=== PATIENT | female | born 1985 | race African-American/Black ===

== ENCOUNTER 2016-08-03 10:37 | Inpatient (IN) | payer MEDICAID ==
[~2016-08-03] VITALS: Ht 165.1 cm; Wt 49.9 kg
[2016-08-03] MEDS ORDERED: DIPHENHYDRAMINE 50MG/ML VIAL IV ONE (12:30)
[2016-08-03] MEDS ORDERED: MORPHINE SULFATE 2 MG/ML CPJ (NOT FOR IM USE) IV ONE (12:30)
[2016-08-03] MEDS ORDERED: ONDANSETRON HCL 4MG/2ML VIAL IV ONE (12:30)
[2016-08-03] MEDS ORDERED: PANTOPRAZOLE SODIUM 40 MG/VIAL IV ONE (12:30)
[2016-08-03] MEDS ORDERED: SODIUM CHLORIDE 0.9% 500 ML IV ONE (12:30)
[2016-08-03 12:36] LABS: BASOPHILS % 0.6 % (0.0-2.0); EOSINOPHILS % 0.2 % (0.0-5.0); HEMATOCRIT. 39.2 % (36.0-48.0); HEMOGLOBIN. 13.2 g/dL (12.0-16.0); LYMPHOCYTES % 7.2 % (20.0-50.0); MEAN CORPUSCULAR HEMOGLOBIN 33.2 pg (28.0-32.0); MEAN CORPUSCULAR HGB CONC 33.8 g/dL (31.0-37.0); MEAN CORPUSCULAR VOLUME 98.4 fL (81.0-99.0); MEAN PLATELET VOLUME 8.3 fl (7.4-10.4); MONOCYTES % 5.1 % (2.0-8.0); NEUTROPHILS % 86.9 % (40.0-76.0); PLATELET 253 x1000/uL (130-400); RED BLOOD CELL COUNT 3.98 mill/uL (4.2-5.4); RED CELL DISTRIBUTION WIDTH 13.1 % (11.6-14.6); WHITE BLOOD COUNT 12.3 x1000/uL (4.5-11.0)
[2016-08-03 12:52] LABS: ALANINE AMINOTRANSFERASE 19 IU/L (13-61); ALBUMIN 3.8 g/dL (3.4-5.0); ANION GAP 14; CALCIUM 8.9 mg/dL (8.5-10.1); CARBON DIOXIDE 27 mEq/L (21-32); CHLORIDE 106 mEq/L (98-107); INDEX HEMOLYSI 1 (1-3); INDEX ICTERIC 1 (1-4); INDEX LIPEMIC 1 (1-3); UREA NITROGEN BLOOD 9 mg/dL (7-21); eGFR > 60 mL/min (>60)
[2016-08-03 13:28] LABS: CLARITY URINE CLEAR (CLEAR); COLOR URINE YELLOW (YELLOW); GLUCOSE URINE NEGATIVE (NEGATIVE); KETONES URINE NEGATIVE (NEGATIVE); LEUKOCYTE ESTERASE URINE NEGATIVE (NEGATIVE); NITRITE URINE NEGATIVE (NEGATIVE); OCCULT BLOOD URINE NEGATIVE (NEGATIVE); PROTEIN URINE TRACE (NEGATIVE); SPECIFIC GRAVITY URINE 1.024 (1.005-1.030)
[2016-08-03 13:48] LABS: BACTERIA URINE TRACE; MUCUS URINE 2+ /lpf (< = 2+); RBC URINE NONE SEEN /hpf (0-2); SQUAMOUS EPITHELIAL CELL URINE 2+ /lpf (RARE/1+); TRICHOMONAS URINE 1+; WBC URINE 0-2 /hpf (0-2)
[2016-08-03 13:55] LABS: *BARBITURATES SCREEN URINE NEGATIVE (NEGATIVE); *BENZODIAZEPINES SCREEN URINE NEGATIVE (NEGATIVE); ECSTASY MDMA SCREEN URINE NEGATIVE (NEGATIVE); METHADONE URINE SCREEN NEGATIVE (NEGATIVE); OPIATES URINE SCREEN NEGATIVE (NEGATIVE); PHENCYCLIDINE URINE SCREEN NEGATIVE (NEGATIVE)
[2016-08-03 13:57] LABS: *AMPHETAMINES SCREEN URINE PRESUMTIVE POSITIVE (NEGATIVE)
[2016-08-03 13:58] LABS: *COCAINE SCREEN URINE PRESUMTIVE POSITIVE (NEGATIVE)
[2016-08-03 13:59] LABS: CANNABINOID URINE SCREEN PRESUMTIVE POSITIVE (NEGATIVE)
[2016-08-03 17:50] VITALS: BP 109/76
[2016-08-03 20:00] VITALS: BP 111/60
[2016-08-03] MEDS ORDERED: DEXT 5%/0.45% NACL 1000ML 1,000 ML IV SCH (20:33)
[2016-08-03] MEDS ORDERED: ONDANSETRON HCL 4MG/2ML VIAL IV PRN (20:45)
[2016-08-03] MEDS ORDERED: ACETAMINOPHEN 325MG TABLET PO PRN (20:45)
[2016-08-03] MEDS ORDERED: LORAZEPAM 2MG/ML CPJ IV PRN (20:45)
[2016-08-03] MEDS ORDERED: CLONIDINE 0.1MG TABLET PO PRN (20:45)
[2016-08-03] MEDS: HYDROMORPHONE HCL/PF 2MG/ML CPJ IV PRN (21:02)
[2016-08-03] MEDS: PANTOPRAZOLE SODIUM 40 MG/VIAL IV SCH (21:30)
[2016-08-03] MEDS ORDERED: LEVOFLOXACIN 500MG PREMIX 100 ML IV SCH (22:00)
[2016-08-04] VITALS: BP 113/72
[2016-08-04] MEDS: HYDROMORPHONE HCL/PF 2MG/ML CPJ IV PRN ×2 (02:21→09:25)
[2016-08-04 04:00] VITALS: BP 101/66
[2016-08-04 05:43] LABS: BASOPHILS % 0.5 % (0.0-2.0); EOSINOPHILS % 1.4 % (0.0-5.0); HEMATOCRIT. 38.5 % (36.0-48.0); HEMOGLOBIN. 12.8 g/dL (12.0-16.0); LYMPHOCYTES % 20.5 % (20.0-50.0); MEAN CORPUSCULAR HEMOGLOBIN 33.1 pg (28.0-32.0); MEAN CORPUSCULAR HGB CONC 33.3 g/dL (31.0-37.0); MEAN CORPUSCULAR VOLUME 99.2 fL (81.0-99.0); MEAN PLATELET VOLUME 8.5 fl (7.4-10.4); MONOCYTES % 10.7 % (2.0-8.0); NEUTROPHILS % 66.9 % (40.0-76.0); PLATELET 216 x1000/uL (130-400); RED BLOOD CELL COUNT 3.88 mill/uL (4.2-5.4); WHITE BLOOD COUNT 8.2 x1000/uL (4.5-11.0)
[2016-08-04 06:28] LABS: ANION GAP 14; CALCIUM 8.2 mg/dL (8.5-10.1); CARBON DIOXIDE 26 mEq/L (21-32); CHLORIDE 100 mEq/L (98-107); INDEX HEMOLYSI 1 (1-3); INDEX ICTERIC 1 (1-4); INDEX LIPEMIC 1 (1-3); MAGNESIUM 1.7 mg/dL (1.8-2.4); PHOSPHORUS 3.9 mg/dL (2.5-4.9); UREA NITROGEN BLOOD 9 mg/dL (7-21); eGFR > 60 mL/min (>60)
[2016-08-04 08:00] VITALS: BP 112/62
[2016-08-04] MEDS: PANTOPRAZOLE SODIUM 40 MG/VIAL IV SCH (09:24)
[2016-08-04] MEDS ORDERED: MAGNESIUM 2 G PREMIX 50 ML IV NR (10:00)
[2016-08-04] MEDS ORDERED: LEVO750T21 PO (11:36)
[2016-08-04 12:00] VITALS: BP 110/68
[2016-08-04 14:15] VITALS: BP 110/68
[2016-08-05] MEDS ORDERED: TINI500T PO (00:46)
== END 2016-08-04 14:40 | disposition home or self-care (01) | DRG 720 ==
LOC: ER 11:09 → 7WST 15:40
PROVIDERS: ADMIT Internal Medicine Nephrology; ATTEND Internal Medicine Nephrology
DX: A41.9 Sepsis, unspecified organism (principal); K92.0 Hematemesis; J18.9 Pneumonia, unspecified organism; A59.9 Trichomoniasis, unspecified; F12.10 Cannabis abuse, uncomplicated; F14.10 Cocaine abuse, uncomplicated; G89.29 Other chronic pain; J45.909 Unspecified asthma, uncomplicated; F15.90 Other stimulant use, unspecified, uncomplicated; Y92.89 Other specified places as the place of occurrence of the external cause
CPT/HCPCS: 36415; 71010; 74176; 80048; 80053; 80305; 81001; 81025; 83735; 84100; 85025; 86850; 86900; 93005; 96361; 96374; 96375; 99285; C9113; J1170; J1200; J1956; J2270; J2405; J3475; J3490; J7040

== ENCOUNTER 2016-08-22 17:15 | Emergency (ER) | payer MEDICAID ==
[~2016-08-22] VITALS: Ht 165.1 cm; Wt 52.0 kg
[~2016-08-22 17:15] MED LIST: LEVO750T21 PO; TINI500T PO
[2016-08-22] MEDS ORDERED: ONDANSETRON HCL 4MG/2ML VIAL IV ONE (19:15)
[2016-08-22] MEDS ORDERED: SODIUM CHLORIDE 0.9% 1,000 ML IV ONE (19:15)
[2016-08-22 19:28] LABS: EOSINOPHILS % 1.9 % (0.0-5.0); HEMATOCRIT. 37.9 % (36.0-48.0); HEMOGLOBIN. 12.5 g/dL (12.0-16.0); LYMPHOCYTES % 37.7 % (20.0-50.0); MEAN CORPUSCULAR HEMOGLOBIN 32.3 pg (28.0-32.0); MEAN CORPUSCULAR HGB CONC 32.9 g/dL (31.0-37.0); MEAN CORPUSCULAR VOLUME 98.2 fL (81.0-99.0); MEAN PLATELET VOLUME 8.4 fl (7.4-10.4); MONOCYTES % 4.6 % (2.0-8.0); NEUTROPHILS % 54.8 % (40.0-76.0); PLATELET 313 x1000/uL (130-400); RED BLOOD CELL COUNT 3.86 mill/uL (4.2-5.4); RED CELL DISTRIBUTION WIDTH 12.8 % (11.6-14.6); WHITE BLOOD COUNT 9.7 x1000/uL (4.5-11.0)
[2016-08-22 19:34] LABS: INR 1.1; PARTIAL THROMBOPLASTIN TIME 28.5 sec (24.0-34.0)
[2016-08-22 19:35] LABS: ALANINE AMINOTRANSFERASE 15 IU/L (13-61); ALBUMIN 3.7 g/dL (3.4-5.0); ANION GAP 14; CALCIUM 8.9 mg/dL (8.5-10.1); CARBON DIOXIDE 26 mEq/L (21-32); CHLORIDE 107 mEq/L (98-107); INDEX HEMOLYSI 1 (1-3); INDEX ICTERIC 1 (1-4); INDEX LIPEMIC 1 (1-3); LIPASE 338 IU/L (73-393); UREA NITROGEN BLOOD 9 mg/dL (7-21)
[2016-08-22 19:36] LABS: eGFR > 60 mL/min (>60)
[2016-08-22 20:29] LABS: CLARITY URINE CLOUDY (CLEAR); COLOR URINE YELLOW (YELLOW); GLUCOSE URINE NEGATIVE (NEGATIVE); KETONES URINE TRACE (NEGATIVE); LEUKOCYTE ESTERASE URINE TRACE (NEGATIVE); NITRITE URINE NEGATIVE (NEGATIVE); OCCULT BLOOD URINE 1+ (NEGATIVE); PH URINE 8.5 (4.5-8.0); PROTEIN URINE NEGATIVE (NEGATIVE); SPECIFIC GRAVITY URINE 1.022 (1.005-1.030)
[2016-08-22] MEDS ORDERED: MORPHINE SULFATE 4 MG/ML CPJ (NOT FOR IM USE) IV ONE (20:30)
[2016-08-22 20:45] LABS: SQUAMOUS EPITHELIAL CELL URINE 1+ /lpf (RARE/1+)
[2016-08-22 20:46] LABS: BACTERIA URINE 2+
[2016-08-23 01:28] VITALS: BP 112/56
== END 2016-08-23 02:29 | disposition home or self-care (01) ==
LOC: ER 18:59
DX: N39.0 Urinary tract infection, site not specified (principal); J45.909 Unspecified asthma, uncomplicated; R11.10 Vomiting, unspecified; F12.10 Cannabis abuse, uncomplicated; Z87.09 Personal history of other diseases of the respiratory system
CPT/HCPCS: 36415; 80053; 81001; 81025; 83690; 85025; 85610; 85730; 96361; 96374; 96375; 99285; J2270; J2405; J7030; Z7610

== ENCOUNTER 2016-10-13 14:59 | Emergency (ER) | payer MEDICAID, OTHER ==
[~2016-10-13] VITALS: Ht 165.1 cm; Wt 55.0 kg
[2016-10-13] MEDS ORDERED: KETOROLAC 60MG/2ML VIAL IM ONE (17:00)
[2016-10-13] MEDS ORDERED: IBUPROFEN 600MG TABLET PO ONE (17:45)
[2016-10-13 18:07] VITALS: BP 116/72
== END 2016-10-13 18:09 | disposition home or self-care (01) ==
LOC: ER 14:59
DX: S43.401A Unspecified sprain of right shoulder joint, initial encounter (principal); V49.49XA Driver injured in collision with other motor vehicles in traffic accident, initial encounter; Y93.89 Activity, other specified; Y92.410 Unspecified street and highway as the place of occurrence of the external cause; J45.909 Unspecified asthma, uncomplicated
CPT/HCPCS: 73030; 81025; 99284; J1885

== ENCOUNTER 2017-12-08 16:26 | Emergency (ER) | payer OTHER ==
[~2017-12-08] VITALS: Ht 165.1 cm; Wt 62.0 kg
[2017-12-08 18:43] LABS: UCG SCREEN POSITIVE
[2017-12-08 18:47] LABS: CLARITY URINE CLEAR (CLEAR); COLOR URINE YELLOW (YELLOW); KETONES URINE NEGATIVE (NEGATIVE); LEUKOCYTE ESTERASE URINE 2+ (NEGATIVE); NITRITE URINE NEGATIVE (NEGATIVE); OCCULT BLOOD URINE NEGATIVE (NEGATIVE); PH URINE 5.5 (4.5-8.0); PROTEIN URINE NEGATIVE (NEGATIVE); SPECIFIC GRAVITY URINE 1.024 (1.005-1.030)
[2017-12-09] MEDS ORDERED: SODIUM CHLORIDE 0.9% 1,000 ML IV ONE (00:54)
[2017-12-09] MEDS: ACETAMINOPHEN 325MG TABLET PO PRN ×2 (00:59→01:00)
[2017-12-09] MEDS ORDERED: ONDANSETRON HCL 4MG/2ML VIAL IV ONE (01:00)
[2017-12-09] MEDS ORDERED: FAMOTIDINE 20MG/2ML VIAL IV ONE (01:00)
[2017-12-09 01:29] LABS: BASOPHILS % 0.6 % (0.0-2.0); EOSINOPHILS % 0.8 % (0.0-5.0); HEMATOCRIT. 40.1 % (36.0-48.0); HEMOGLOBIN. 13.5 g/dL (12.0-16.0); LYMPHOCYTES % 18.4 % (20.0-50.0); MEAN CORPUSCULAR HEMOGLOBIN 31.8 pg (28.0-32.0); MEAN CORPUSCULAR VOLUME 94.4 fL (81.0-99.0); MEAN PLATELET VOLUME 8.6 fl (7.4-10.4); MONOCYTES % 6.3 % (2.0-8.0); NEUTROPHILS % 73.9 % (40.0-76.0); PLATELET 333 x1000/uL (130-400); RED BLOOD CELL COUNT 4.24 mill/uL (4.2-5.4); RED CELL DISTRIBUTION WIDTH 12.2 % (11.6-14.6)
[2017-12-09 01:34] LABS: CHLORIDE 101 mEq/L (98-107)
[2017-12-09 02:00] LABS: B-HCG QUANTITATIVE 93130 mIU/mL (<3)
[2017-12-09] MEDS ORDERED: ONDANSETRON 4MG ODT PO ONE (04:00)
[2017-12-09 04:38] VITALS: BP 112/77
== END 2017-12-09 06:45 | disposition home or self-care (01) ==
LOC: ER 16:26
DX: O21.0 Mild hyperemesis gravidarum (principal); O23.41 Unspecified infection of urinary tract in pregnancy, first trimester; J45.909 Unspecified asthma, uncomplicated; F12.10 Cannabis abuse, uncomplicated; F17.200 Nicotine dependence, unspecified, uncomplicated; Z3A.11 11 weeks gestation of pregnancy
CPT/HCPCS: 36415; 76801; 80053; 81003; 81025; 84702; 85025; 86850; 86900; 86901; 96361; 96374; 96375; 99285; J2405; J7030; Q0162

== ENCOUNTER 2018-02-01 07:44 | Emergency (ER) | payer MEDICAID, OTHER ==
[~2018-02-01] VITALS: Ht 162.6 cm; Wt 60.0 kg
[2018-02-01 07:45] VITALS: BP 112/68
[2018-02-01] MEDS ORDERED: ACETAMINOPHEN 325MG TABLET PO ONE (08:30)
== END 2018-02-01 09:02 | disposition home or self-care (01) ==
LOC: ER 07:44
DX: O99.89 Other specified diseases and conditions complicating pregnancy, childbirth and the puerperium (principal); K08.89 Other specified disorders of teeth and supporting structures; I88.9 Nonspecific lymphadenitis, unspecified; Z3A.20 20 weeks gestation of pregnancy
CPT/HCPCS: 99283

== ENCOUNTER 2018-04-09 19:42 | Observation (INO) | payer MEDICAID ==
[~2018-04-09] VITALS: Ht 165.1 cm; Wt 65.8 kg
[2018-04-09] MEDS ORDERED: ONDANSETRON HCL 4MG/2ML INJ IV NR (20:45)
[2018-04-09 20:50] LABS: CLARITY URINE TURBID (CLEAR); COLOR URINE YELLOW (YELLOW); KETONES URINE TRACE (NEGATIVE); LEUKOCYTE ESTERASE URINE 3+ (NEGATIVE); NITRITE URINE NEGATIVE (NEGATIVE); OCCULT BLOOD URINE 1+ (NEGATIVE); PROTEIN URINE 1+ (NEGATIVE); SPECIFIC GRAVITY URINE 1.022 (1.005-1.030)
[2018-04-09 20:55] LABS: BASOPHILS % 0.3 % (0.0-2.0); HEMATOCRIT. 35.7 % (36.0-48.0); HEMOGLOBIN. 11.7 g/dL (12.0-16.0); LYMPHOCYTES % 21.4 % (20.0-50.0); MEAN CORPUSCULAR HEMOGLOBIN 31.4 pg (28.0-32.0); MEAN CORPUSCULAR VOLUME 95.4 fL (81.0-99.0); MEAN PLATELET VOLUME 10.3 fl (7.4-10.4); MONOCYTES % 6.5 % (2.0-8.0); NEUTROPHILS % 70.8 % (40.0-76.0); PLATELET 208 x1000/uL (130-400); RED BLOOD CELL COUNT 3.74 mill/uL (4.2-5.4); RED CELL DISTRIBUTION WIDTH 13.1 % (11.6-14.6)
[2018-04-09 20:56] LABS: CHLORIDE 105 mEq/L (98-107)
[2018-04-09] MEDS ORDERED: MVI, ADULT NO.1 10 ML in DEXT 5%/0.9% NACL 1,000 ML IV ONE ×2 (22:30)
[2018-04-09] MEDS ORDERED: PREN-176 MT (23:34)
== END 2018-04-09 23:50 | disposition home or self-care (01) ==
LOC: L&D 19:42
PROVIDERS: ADMIT Specialist; ATTEND Specialist
DX: O26.893 Other specified pregnancy related conditions, third trimester (principal); R42 Dizziness and giddiness; R10.30 Lower abdominal pain, unspecified; N89.8 Other specified noninflammatory disorders of vagina; M54.9 Dorsalgia, unspecified; O21.2 Late vomiting of pregnancy; Z3A.29 29 weeks gestation of pregnancy
CPT/HCPCS: 36415; 80048; 81003; 85025; 96365; 96366; 96375; 99281; G0378; J2405; J3490; 96360; 96361; J7042

== ENCOUNTER 2018-05-06 20:04 | Observation (INO) | payer MEDICAID ==
[~2018-05-06] VITALS: Ht 165.1 cm; Wt 68.0 kg
[~2018-05-06 20:04] MED LIST changes: +PREN-176 MT
[2018-05-06] MEDS ORDERED: LACTATED RINGERS 1,000 ML IV SCH (21:45)
[2018-05-06 22:18] LABS: CLARITY URINE CLOUDY (CLEAR); COLOR URINE YELLOW (YELLOW); KETONES URINE NEGATIVE (NEGATIVE); LEUKOCYTE ESTERASE URINE 3+ (NEGATIVE); NITRITE URINE NEGATIVE (NEGATIVE); OCCULT BLOOD URINE NEGATIVE (NEGATIVE); PH URINE 6.5 (4.5-8.0); PROTEIN URINE NEGATIVE (NEGATIVE); UROBILINOGEN URINE 0.2 E.U./dL (0.2-1.0)
[2018-05-06] MEDS ORDERED: ACETAMINOPHEN 500MG TABLET PO ONE (23:15)
[2018-05-07] MEDS ORDERED: CEFAZOLIN 2,000 MG in DEXT 5% WATER 100 ML IV SCH ×2
== END 2018-05-07 01:00 | disposition home or self-care (01) ==
LOC: EDBD 20:04 → 8 EST LDRP 20:04
PROVIDERS: ADMIT Obstetrics & Gynecology; ATTEND Obstetrics & Gynecology
DX: O36.8130 Decreased fetal movements, third trimester, not applicable or unspecified (principal); O21.2 Late vomiting of pregnancy; O26.853 Spotting complicating pregnancy, third trimester; O26.893 Other specified pregnancy related conditions, third trimester; R10.30 Lower abdominal pain, unspecified; R51 Headache; Z3A.33 33 weeks gestation of pregnancy
CPT/HCPCS: 76805; 76818; 81003; 96361; 96365; 99281; G0378; J0690; 96360; 96372; J7060

== ENCOUNTER 2018-07-31 12:22 | Emergency (ER) | payer MEDICAID ==
[~2018-07-31] VITALS: Ht 165.1 cm; Wt 60.0 kg
[2018-07-31] MEDS ORDERED: LORAZEPAM 0.5MG TABLET PO ONE (14:15)
[2018-07-31] MEDS ORDERED: KETOROLAC 60MG/2ML VIAL IM ONE (14:15)
[2018-07-31 16:40] VITALS: BP 109/70
== END 2018-07-31 16:40 | disposition home or self-care (01) ==
LOC: ER 12:22
DX: S19.9XXA Unspecified injury of neck, initial encounter (principal); S02.2XXA Fracture of nasal bones, initial encounter for closed fracture; J45.909 Unspecified asthma, uncomplicated; F17.200 Nicotine dependence, unspecified, uncomplicated; F12.10 Cannabis abuse, uncomplicated; V49.49XA Driver injured in collision with other motor vehicles in traffic accident, initial encounter; Y93.89 Activity, other specified; Y92.89 Other specified places as the place of occurrence of the external cause; Y99.8 Other external cause status
CPT/HCPCS: 70486; 72125; 81025; 96372; 99284; J1885

== ENCOUNTER 2021-08-24 09:49 | Emergency (ER) | payer MEDICAID ==
[~2021-08-24] VITALS: Ht 165.1 cm; Wt 54.0 kg
[2021-08-24] MEDS ORDERED: LORAZEPAM 0.5MG TABLET PO ONE (10:15)
[2021-08-24 10:23] LABS: BASOPHILS % 0.6 % (0.0-2.0); EOSINOPHILS % 0.5 % (0.0-5.0); HEMATOCRIT. 43.7 % (36.0-48.0); HEMOGLOBIN. 14.7 g/dL (12.0-16.0); LYMPHOCYTES % 21.5 % (20.0-50.0); MEAN CORPUSCULAR HEMOGLOBIN 32.8 pg (28.0-32.0); MEAN CORPUSCULAR VOLUME 97.7 fL (81.0-99.0); MEAN PLATELET VOLUME 8.8 fl (7.4-10.4); MONOCYTES % 4.3 % (2.0-8.0); NEUTROPHILS % 73.1 % (40.0-76.0); PLATELET 323 x1000/uL (130-400); RED BLOOD CELL COUNT 4.48 mill/uL (4.2-5.4)
[2021-08-24 10:28] LABS: CLARITY URINE CLEAR (CLEAR); COLOR URINE YELLOW (YELLOW); KETONES URINE NEGATIVE (NEGATIVE); LEUKOCYTE ESTERASE URINE NEGATIVE (NEGATIVE); NITRITE URINE NEGATIVE (NEGATIVE); OCCULT BLOOD URINE 1+ (NEGATIVE); PROTEIN URINE NEGATIVE (NEGATIVE)
[2021-08-24 10:35] LABS: CHLORIDE 108 mEq/L (98-107)
[2021-08-24 10:39] LABS: ETHANOL BLOOD 102 mg/dL
[2021-08-24 10:51] LABS: HCG SCREEN NEGATIVE
[2021-08-24] MEDS ORDERED: RISPERIDONE 0.5MG TABLET PO SCH (11:00)
[2021-08-24] MEDS ORDERED: CITALOPRAM HYDROBROMIDE 10MG TABLET PO SCH (12:00)
[2021-08-24 12:07] LABS: *BARBITURATES SCREEN URINE NEGATIVE (NEGATIVE)
[2021-08-24 12:08] LABS: *AMPHETAMINES SCREEN URINE NEGATIVE (NEGATIVE); *COCAINE SCREEN URINE NEGATIVE (NEGATIVE); OPIATES URINE SCREEN NEGATIVE (NEGATIVE); PHENCYCLIDINE URINE SCREEN NEGATIVE (NEGATIVE)
[2021-08-24 12:10] LABS: *BENZODIAZEPINES SCREEN URINE NEGATIVE (NEGATIVE)
[2021-08-24 12:11] LABS: METHADONE URINE SCREEN NEGATIVE (NEGATIVE)
[2021-08-24 12:18] LABS: CANNABINOID URINE SCREEN PRESUMTIVE POSITIVE (NEGATIVE)
[2021-08-24 17:30] VITALS: BP 128/71
== END 2021-08-24 17:32 | disposition home or self-care (01) ==
LOC: ER 11:29
DX: F31.4 Bipolar disorder, current episode depressed, severe, without psychotic features (principal); F43.0 Acute stress reaction; F10.129 Alcohol abuse with intoxication, unspecified; Y90.5 Blood alcohol level of 100-119 mg/100 ml; F12.90 Cannabis use, unspecified, uncomplicated; Z20.822 Contact with and (suspected) exposure to COVID-19
CPT/HCPCS: 36415; 80053; 80305; 80307; 80320; 80329; 81003; 84703; 85025; 99284; C9803; U0003; U0005; G0480

== ENCOUNTER 2024-11-07 09:47 | Emergency (ER) | payer MEDICAID ==
[~2024-11-07] VITALS: Ht 170.2 cm; Wt 65.0 kg
[2024-11-07 09:49] VITALS: TEMP 36.7; O2SAT 99
[2024-11-07] MEDS: SODIUM CHLORIDE 0.9% 1,000 ML IV ONE (10:57)
[2024-11-07] MEDS: ONDANSETRON HCL 4MG/2ML INJ IV STA (10:57)
[2024-11-07 11:12] LABS: BASOPHILS % 0.3 % (0.0-2.0); EOSINOPHILS % 0.2 % (0.0-5.0); HEMATOCRIT. 44.2 % (36.0-48.0); HEMOGLOBIN. 14.7 g/dL (12.0-16.0); LYMPHOCYTES % 12.2 % (20.0-50.0); MEAN PLATELET VOLUME 9.0 fl (7.4-10.4); MONOCYTES % 5.9 % (2.0-8.0); NEUTROPHILS % 81.4 % (40.0-76.0); PLATELET 297 x1000/uL (130-400); RED BLOOD CELL COUNT 4.53 mill/uL (4.2-5.4); RED CELL DISTRIBUTION WIDTH 12.8 % (11.6-14.6)
[2024-11-07 11:23] LABS: INR 1.0
[2024-11-07 11:24] LABS: HCG SCREEN NEGATIVE
[2024-11-07 11:26] LABS: CREATININE 1.0 mg/dL (0.6-1.0); TROPONIN I HIGH SENSITIVITY < 4 ng/L (3.0-34); UREA NITROGEN BLOOD 13 mg/dL (9-23)
[2024-11-07 11:28] LABS: ASPARTATE AMINOTRANSFERASE 48 IU/L (<34); BILIRUBIN DIRECT 0.3 mg/dL (<=3.0); BILIRUBIN TOTAL 1.0 mg/dL (0.1-1.0); PROTEIN TOTAL 8.2 g/dL (6.0-8.3)
[2024-11-07] MEDS: VISCOUS LIDOCAINE 2% 15 ML UDC MM ONE (12:47)
[2024-11-07] MEDS: KETOROLAC 30MG/ML VIAL IV ONE (14:35)
[2024-11-07] MEDS: ONDANSETRON 4MG ODT PO ONE (14:35)
[2024-11-07 16:50] VITALS: BP 114/77; PULSE 56; RESP 12; O2SAT 100
[2024-11-07] MEDS ORDERED: ONDA-239 PO (17:21)
[2024-11-07] MEDS ORDERED: AMOX-494 MT (17:21)
== END 2024-11-07 18:41 | disposition home or self-care (01) ==
LOC: ER 09:47
DX: J02.0 Streptococcal pharyngitis (principal); R11.2 Nausea with vomiting, unspecified; F41.9 Anxiety disorder, unspecified; J45.909 Unspecified asthma, uncomplicated; F32.A Depression, unspecified; F20.9 Schizophrenia, unspecified; F12.90 Cannabis use, unspecified, uncomplicated; Z86.73 Personal history of transient ischemic attack (TIA), and cerebral infarction without residual deficits; Z79.899 Other long term (current) drug therapy
CPT/HCPCS: 80076; 80048; 84703; 87430; 85025; 85610; 86850; 86900; 86901; 84484; 36415; 71045; 93005; 96361; 96374; 96375; 99285; Q0162; J1885; J2405; J7030; Z7610 ×3